=== PATIENT | female | born 1980 | race Caucasian/White ===

== ENCOUNTER 2019-06-26 15:12 | Emergency (ER) | payer OTHER, MEDICAID, SELFPAY ==
--- NOTE | 2019-06-26 15:21 | PC.NURSE ---
Patient has incision, performed on Wednesday with some redness to left side of incision and bruising to left abdomen. She reports temp of 100.2 at home and some concern for possible incision infection. Has been taking tylenol at home.
[2019-06-26 15:23] VITALS: BP 121/61; PULSE 89; RESP 18; O2SAT 100
--- NOTE | 2019-06-26 16:08 | ED_ITS ---
HPI - Skin/Abscess/Foreign Bdy General Chief complaint: Skin/Abscess/Foreign Body Stated complaint: INFECTION FROM C SECTION Time Seen by Provider: 06/26/19 15:34 Source: patient Mode of arrival: Ambulatory Limitations: no limitations History of Present Illness HPI narrative: 38-year-old female. One week status post scheduled repeat C- section. Delivered a baby girl. Patient is breast feeding. States she is bon ding well with the child. No depression. Vaginal bleeding has decreased. No urinary symptoms. Stated that she did have a fever yesterday but took Tylenol. Is here for evaluation of potential infection of her incision. She was told by both nursing and the OB provider the time of for discharge to be conscientious of a potential infection especially on the left side of the incision. She reports that she is having some lower abdominal pain and uterine pain and incisional pain. There has been no drainage from the area. She does have bruising around the area but no other skin changes. No foul-smelling vaginal discharge. Review of Systems Constitutional Constitutional: Denies fatigue, Reports fever(s), Denies lethargy and Denies malaise Genitourinary Genitourinary: Denies dysuria and Denies vaginal odor Musculoskeletal Musculoskeletal: Denies myalgias and Denies arthralgias Integumentary/Breasts Comments: Bruising around the incision Neurologic Neurologic: Denies behavioral changes Psychiatric Psychiatric: Denies behavioral changes Endocrine Endocrine: Denies fatigue Hematologic/Lymphatic Hematologic/Lymphatic: Denies easy bleeding and Denies easy bruising Patient History Medical History Healthy adult (Acute) Social History Smoking Status: Never smoker Smoking Status: Never smoker Substance Use Type: does not use Exam Initial Vital Signs Initial Vital Signs: Vital Signs Pulse Rate 89 06/26/19 15:23 Respiratory Rate 18 06/26/19 15:23 Blood Pressure 121/61 06/26/19 15:23 Pulse Oximetry 100 06/26/19 15:23 Const General: cooperative, comfortable and well developed Limitations: mental status not altered HENMT Head: normal to inspection and normocephalic Resp Effort & Inspection: normal respiratory effort Auscultation: clear to auscultation bilaterally Cardio Rate: regular rate Rhythm: regular rhythm GI Inspection: non-distended Palpation: soft, No firm and tender (Lower abdomen) Skin Other: Surgical incision lower abdomen consistent with stated history. Does have bruising along the left side along the iliac crest. Also has bruising down the left adnexa. No drainage. No crepitus. Extrem General: capillary refill normal Psych Appearance: grossly normal and well kempt Course Vital Signs Vital signs: Vital Signs - 8 hr 06/26/19 15:23 06/26/19 16:19 Pulse Rate 89 77 Respiratory Rate 18 16 Blood Pressure 121/61 118/63 Pulse Oximetry 100 99 MDM - Skin/Abscess/Foreign Bdy MDM Narrative Medical decision making narrative: Afebrile here in the emergency department. Already has Tylenol ibuprofen and oxycodone prescribed to her by her primary doctor for the lower abdominal pain. Considered diagnoses such as urinary tract infection however patient has no urinary symptoms. Also considered endometritis however patient states that the lower abdominal pain that she is having now has been consistent with her prior C-sections. She is also not having any foul- smelling vaginal discharge. She states that the vaginal bleeding is greatly improved from the time of her surgery. She does have tenderness along the left side of her incision however the incision looks well. Everything that I see today is consistent with being 1 week out from her stated procedure. Does have bruising around the area. There is a small area over top of the bruise that seems to be the most tender to the patient. I suspect this is a hematoma. Had a long discussion with the patient regarding symptoms. I did offer to draw blo od however patient did not want any IVs. Informed her that we could wait to see what happens over the next 24-48 hours. Informed her that if her fevers continue or her pain worsens or she started having vaginal discharge or breast pain which could be concerning for mastitis that she should come back to the emergency department. We did discuss that the medications that she is taking are being passed to her child. We did discuss that she should limit the oxycodone as much as possible. Patient expressed understanding and agreement with this plan. Discharge Plan Departure Patient Disposition: Home Clinical Impression: Post-operative pain Discharge Date/Time: 06/26/19 16:20 Activity Restrictions/Additional Instructions: Continue with all of the postoperative instructions given to you by your OB provider. Recommend that you continue all the medications as directed. Contact your OB provider for follow-up. Return to the emergency department for any fevers, worsening pain, foul-smelling vaginal discharge, urinary symptoms or any other new or worsening symptoms
[2019-06-26 16:19] VITALS: BP 118/63; PULSE 77; RESP 16; O2SAT 99
== END 2019-06-26 16:20 | disposition home or self-care (01) ==
PROVIDERS: Emergency Provider Emergency Medicine
DX: G89.18 Other acute postprocedural pain (principal); O90.89 Other complications of the puerperium, not elsewhere classified
CPT/HCPCS: 99281

== ENCOUNTER 2019-11-27 16:51 | Emergency (ER) | payer OTHER, MEDICAID, SELFPAY ==
[2019-11-27 16:55] VITALS: BP 129/73; PULSE 83; RESP 16; TEMP 36.8; O2SAT 98; BMI 21.1
--- NOTE | 2019-11-27 16:56 | ED_ITS ---
HPI - Extremity Injury (Lower) General Chief Complaint: Extremity Injury, Lower Stated Complaint: R Lower leg injury Time Seen by Provider: 11/27/19 16:56 History of Present Illness HPI Narrative: 39-year-old woman with no other significant medical history was in her own kitchen slipped on some water and caught her banda on a sharp piece of hardware sticking out of the edge of the ore feeder. She suffered a 3 cm laceration on the anterior portion of her banad. Describes quite a bit of bleeding and significant pain with spasm. Bleeding is controlled at this point she still having some emotional difficulties dealing with the pain. She describes no fever, cough, chills, dyspnea, chest pain, additional trauma with the fall. She notes that it has been a very trying year with that difficult C- section and she is tired of ?hurting and being poked?. Related Data Previous Rx's Medication Instructions Recorded cephalexin 500 mg PO TID #15 cap 11/27/19 oxycodone-acetaminophen 1 tab PO Q8H PRN #10 tab 11/27/19 Allergies Allergy/AdvReac Type Severity Reaction Status Date / Time No Known Drug Allergies Allergy Verified 11/27/19 16:55 Review of Systems Review of Systems Narrative: Remainder of review of systems including constitutional, ENT, cardiovascular, respiratory, GI, , musculoskeletal, skin, neurologic and psychiatric systems reviewed and are unremarkable except as noted in HPI. Patient History Medical History Healthy adult (Acute) Surgical History History of section (Inactive) Social History Smoking Status: Never smoker Smoking Status: Never smoker Substance Use Type: does not use Exam Narrative Exam Narrative: General: Alert appropriate in no acute distress Respiratory: Able to speak in full sentences, no obvious respiratory distress Skin: No obvious rashes, warm and dry Neurologic: Grossly intact no obvious asymmetries or abnormalities Psych, appropriate insight and affect, cooperative Extremity: 3 cm laceration to the mid anterior right banda. The laceration is somewhat angulated does not appear to get all the way to bone but that is certainly a possibility. Neurovascularly intact distally. Initial Vital Signs Initial Vital Signs: Vital Signs Temperature 98.3 F 11/27/19 16:55 Pulse Rate 83 11/27/19 16:55 Respiratory Rate 16 11/27/19 16:55 Blood Pressure 129/73 11/27/19 16:55 Pulse Oximetry 98 11/27/19 16:55 Procedures Laceration Repair Right anterior banda: Site: lower extremity Side (If applicable): right Size (cm): 3 Description: linear Depth: simple, single layer and involves muscle layer Local Anesthetic: lidocaine 1% and with bicarb Amount of anesthesia used (mL): 10 Pre-repair: wound explored, irrigated extensively and deep structures intact Skin layer closed with: nylon Size (cm): 3-0 Number of sutures: 5 Technique: running and horizontal mattress Course Orders Ordered: Discontinued Medications Bacitracin (Bacitracin) 1 applic TOP NOW ONE Stop: 11/27/19 17:03 Last Admin: 11/27/19 17:12 Dose: 1 applic Documented by: VIDA Ibuprofen (Advil) 400 mg PO NOW ONE Stop: 11/27/19 17:03 Last Admin: 11/27/19 17:11 Dose: 400 mg Documented by: VIDA Lidocaine/Sodium Bicarbonate (Buffered Lidocaine 10 Ml Syr) 10 ml INJ NOW ONE Stop: 11/27/19 17:03 Last Admin: 11/27/19 17:11 Dose: 10 ml Documented by: VIDA Ondansetron HCl (Zofran Odt) 4 mg SL NOW ONE Stop: 11/27/19 17:36 Last Admin: 11/27/19 17:41 Dose: 4 mg Documented by: VIDA Oxycodone/Acetaminophen (Percocet 5/325) 1 tab PO NOW ONE Stop: 11/27/19 17:03 Last Admin: 11/27/19 17:12 Dose: 1 tab Documented by: VIDA Vital Signs Vital signs: Vital Signs - 8 hr 11/27/19 16:55 Temperature 98.3 F Pulse Rate 83 Respiratory Rate 16 Blood Pressure 129/73 Pulse Oximetry 98 MDM - Extremity Injury (Lower) MDM Narrative Medical decision making narrative: Deep laceration to the anterior banda with the possibility of the exposed piece actually getting deep enough to touch the bone will go ahead and place her on antibiotics for 5 days. Sutures will need to come out in 14 days due to the depth of the wound Safe for home discharge Discharge Plan Departure Patient Disposition: Home Clinical Impression: Laceration of lower extremity Qualifiers: Encounter type: initial encounter Laterality: right Qualified Code(s): S81.811A - Laceration without foreign body, right lower leg, initial encounter Instructions: DI for Laceration Repair Activity Restrictions/Additional Instructions: I am sorry that you need to come in today The laceration on your leg is fairly deep and there is a potential for infection. Please complete 5 days of Keflex to prevent infection. Keep the area covered with some antibiotic ointment. Using 400 mg of ibuprofen (2 [id number] pills) and 1 Tylenol every 6 hours can be very helpful in controlling pain. For severe pain to ibuprofen and 1 Percocet can be helpful. Ice and elevation will also be helpful. If you feel that the leg is getting more swollen you may find that a compression dressing or compression sock also helps control the discomfort Sutures need to come out on or about December 09 or (14ish days) I hope you heal well. Prescriptions: New cephalexin 500 mg capsule 500 mg PO TID Qty: 15 RF: 0 oxycodone-acetaminophen 5-325 mg tablet 1 tab PO Q8H PRN (Reason: pain) Qty: 10 RF: 0
[2019-11-27] MEDS: LIDO 1%/SOD BICARB 8.4% (10ML) 10 ML SYRINGE INJ (17:11)
[2019-11-27] MEDS: IBUPROFEN 400 MG TABLET PO (17:11)
[2019-11-27] MEDS: OXYCODONE/ACETAMINOPHEN 5/325 TABLET 1 TAB PO (17:12)
[2019-11-27] MEDS: BACITRACIN OINT 0.9 GM PCKT 1 APPLIC TOP (17:12)
[2019-11-27] MEDS: ONDANSETRON 4 MG ODT SL (17:41)
[2019-11-27 19:01] VITALS: BP 128/80; PULSE 82; RESP 14; TEMP 36.7; O2SAT 100
== END 2019-11-27 19:01 | disposition home or self-care (01) ==
PROVIDERS: Emergency Provider Emergency Medicine
DX: S81.811A Laceration without foreign body, right lower leg, initial encounter (principal); W01.0XXA Fall on same level from slipping, tripping and stumbling without subsequent striking against object, initial encounter
CPT/HCPCS: 12002; 99283

== ENCOUNTER 2022-02-27 13:21 | Emergency (ER) | payer OTHER, MEDICAID, SELFPAY ==
[2022-02-27 13:43] VITALS: BP 121/75; PULSE 92; RESP 20; TEMP 37.1; O2SAT 98; BMI 19.6
--- NOTE | 2022-02-27 13:51 | DI.RAD.S_ITS ---
PROCEDURE: XR CHEST 2V INDICATIONS: cough, rib pain TECHNIQUE: 2 views of the chest were acquired. COMPARISON: None. FINDINGS: Surgical changes and devices: None. Lungs and pleura: Bilateral perihilar interstitial thickening. Small consolidations in the medial right lower lobe and lingular region. No pleural effusion. No pneumothorax. Mediastinum: Mediastinal contours are normal. Heart size is normal. No central vascular congestion. Bones and chest wall: No suspicious bony abnormalities. Soft tissues appear unremarkable. IMPRESSION: 1. Perihilar interstitial thickening most suggestive of viral pneumonitis. 2. Small consolidations suggesting developing focal pneumonia. No pleural effusion. Dictated by: Ana Paula Sigala M.D. on 02/27/2022 at 15:05 Approved by: Ana Paula Sigala M.D. on 02/27/2022 at 15:06
[2022-02-27 14:38] LABS: Influenza A - CEPHEID Flu A NEGATIVE (NEGATIVE); Influenza B - CEPHEID Flu B NEGATIVE (NEGATIVE); Respiratory Syncytial Virus Negative (Negative)
[2022-02-27 14:43] LABS: COVID-19 CEPHEID 4-PLEX PCR Negative (Negative)
--- NOTE | 2022-02-27 17:43 | ED_ITS ---
HPI - URI/Sore Throat <Yaneth Li, [facility] - Last Filed: 02/27/22 18:24> General Chief Complaint: Upper Respiratory Symptoms Stated Complaint: ill,fever, t-19,Lside pain t-4, SOB Time Seen by Provider: 02/27/22 17:28 Source: patient Mode of arrival: Ambulatory History of Present Illness HPI Narrative: This is a 41-year-old female who presents to the emergency department complaining of 19 days of upper respiratory cough, congestion, fevers daily, states is a she was nauseated with vomiting for the 1st 3 days of her illness but has not had these problems since. She states that she is had a fever every day of her upper respiratory illness, states that her child had flu symptoms and was seen at the urgent Care and so she but the focus was more on the child and she did not find out if she had anything contagious as they only tested her for flu. Patient states that she is out of her nebs for her albuterol machine, states that she has a history of asthma and has used it all up. She denies dysuria, urinary frequency or urgency, flank pain, or possibility. She states she has her tubes tied. Patient states that her cough is wet, she is had a runny nose and increased congestion. Related Data Previous Rx's Medication Instructions Recorded cephalexin 500 mg capsule 500 mg PO TID #15 caps 11/27/19 oxycodone-acetaminophen 5 mg-325 1 tab PO Q8H PRN pain #10 tabs 11/27/19 mg tablet albuterol sulfate 90 mcg/actuation 1 puff inhalation QID PRN 02/27/22 aerosol inhaler shortness of breath or wheezing #8.5 grams amoxicillin 500 mg tablet 1,000 mg PO TID pneumonia 5 days 02/27/22 #30 tabs azithromycin 250 mg tablet 250 mg PO DAILY 4 days #4 tabs 02/27/22 benzonatate 100 mg capsule 100 mg PO Q6H PRN cough #14 caps 02/27/22 cetirizine 10 mg tablet (Zyrtec) 10 mg PO DAILY PRN congestion #20 02/27/22 tabs guaifenesin 600 mg tablet, 600 mg PO BID PRN cough #20 tabs 02/27/22 extended release 12 hr lidocaine 5 % topical patch 1 patch topical DAILY #15 ea 02/27/22 (Lidoderm) Allergies Allergy/AdvReac Type Severity Reaction Status Date / Time No Known Drug Allergies Allergy Verified 02/27/22 13:43 Review of Systems <CARIDAD Sanchez - Last Filed: 02/27/22 18:24> Review of Systems Narrative: Review of systems is negative for acute abnormalities unless otherwise noted in HPI Patient History <CARIDAD Sanchez - Last Filed: 02/27/22 18:24> Medical History Healthy adult Surgical History History of section Social History Smoking Status: Never smoker Smoking Status: Never smoker Substance Use Type: does not use Exam <CARIDAD Sanchez - Last Filed: 02/27/22 18:24> Narrative Exam Narrative: Reviewed vitals signs and nursing notes. General: cooperative, comfortable, in no acute distress, well groomed HEENT: symmetrical facial expressions, moist mucous membranes Cardiovascular: regular rate and rhythm, no peripheral edema, warm extremities Respiratory: normal effort, able to speak in complete sentences, without wheezing, stridor, crackles auscultated to right middle/lower lobe and crackles to left lower lobe with diminished breath sounds, No retractions, hypoxia, increased respiratory effort or tachypnea. Wet cough, productive GI: abdomen soft, nontender to palpation, nondistended, without masses, rebound tenderness or exquisite tenderness with exam. MSK: moves all extremities, neurovascularly intact, no weakness, normal tone Skin: brisk capillary refill, without pallor or erythema Neuro: normal speech and cognition, A&O x3, ambulatory, clear speech Psych: mental status is grossly normal, congruent mood, normal affect, pleasant and cooperative Initial Vital Signs Initial Vital Signs: Vital Signs Temperature 98.7 F 02/27/22 13:43 Pulse Rate 92 H 02/27/22 13:43 Respiratory Rate 20 02/27/22 13:43 Blood Pressure 121/75 02/27/22 13:43 Pulse Oximetry 98 02/27/22 13:43 Oxygen Delivery Method 02/27/22 13:43 <Anthony Skinner DO - Last Filed: 02/27/22 18:26> Initial Vital Signs Initial Vital Signs: Vital Signs Temperature 98.7 F 02/27/22 13:43 Pulse Rate 92 H 02/27/22 13:43 Respiratory Rate 20 02/27/22 13:43 Blood Pressure 121/75 02/27/22 13:43 Pulse Oximetry 98 02/27/22 13:43 Oxygen Delivery Method 02/27/22 13:43 Course <CARIDAD Sanchez - Last Filed: 02/27/22 18:24> Orders Ordered: ED Orders 02/27/22 13:51 XR chest 2V Stat 02/27/22 13:52 Covid-19 + FLU A/B + RSV - PCR Stat 02/27/22 18:04 Urine Microscopic Stat Discontinued Medications Albuterol/Ipratropium (Albuterol/Ipratropium 3 Ml Ampul) 3 ml INH NOW ONE Stop: 02/27/22 17:40 Last Admin: 02/27/22 18:06 Dose: 3 ml Documented By: SAT Amoxicillin (Amoxicillin 250 Mg Capsule) 1,000 mg PO NOW ONE Stop: 02/27/22 17:40 Last Admin: 02/27/22 18:16 Dose: Not Given Documented By: SB Amoxicillin (Amoxicillin 250 Mg Capsule) 1,000 mg PO NOW ONE Stop: 02/27/22 18:17 Azithromycin (Azithromycin 250 Mg Tablet) 500 mg PO NOW ONE Stop: 02/27/22 17:40 Last Admin: 02/27/22 18:13 Dose: 500 mg Documented By: SB Dexamethasone (Dexamethasone 10 Mg/Ml Vial) 10 mg PO NOW ONE Stop: 02/27/22 17:40 Last Admin: 02/27/22 18:13 Dose: 10 mg Documented By: SB Guaifenesin/Codeine Phosphate (Codeine/Guaifenesin Liquid 5ml Udc) 10 ml PO NOW ONE Stop: 02/27/22 17:43 Ketorolac Tromethamine (Ketorolac 30 Mg/Ml Vial) 15 mg IM NOW ONE Stop: 02/27/22 17:40 Last Admin: 02/27/22 18:22 Dose: Not Given Documented By: SB Vital Signs Vital signs: Vital Signs - 8 hr 02/27/22 13:43 02/27/22 18:13 Temperature 98.7 F Pulse Rate 92 H 88 Respiratory Rate 20 16 Blood Pressure 121/75 Pulse Oximetry 98 100 Oxygen Delivery Method Room Air Room Air <Anthony Skinner DO - Last Filed: 02/27/22 18:26> Orders Ordered: ED Orders 02/27/22 13:51 XR chest 2V Stat 02/27/22 13:52 Covid-19 + FLU A/B + RSV - PCR Stat 02/27/22 18:04 Urine Microscopic Stat Discontinued Medications Albuterol/Ipratropium (Albuterol/Ipratropium 3 Ml Ampul) 3 ml INH NOW ONE Stop: 02/27/22 17:40 Last Admin: 02/27/22 18:06 Dose: 3 ml Documented By: SAT Amoxicillin (Amoxicillin 250 Mg Capsule) 1,000 mg PO NOW ONE Stop: 02/27/22 17:40 Last Admin: 02/27/22 18:16 Dose: Not Given Documented By: SB Amoxicillin (Amoxicillin 250 Mg Capsule) 1,000 mg PO NOW ONE Stop: 02/27/22 18:17 Azithromycin (Azithromycin 250 Mg Tablet) 500 mg PO NOW ONE Stop: 02/27/22 17:40 Last Admin: 02/27/22 18:13 Dose: 500 mg Documented By: SB Dexamethasone (Dexamethasone 10 Mg/Ml Vial) 10 mg PO NOW ONE Stop: 02/27/22 17:40 Last Admin: 02/27/22 18:13 Dose: 10 mg Documented By: SB Guaifenesin/Codeine Phosphate (Codeine/Guaifenesin Liquid 5ml Udc) 10 ml PO NOW ONE Stop: 02/27/22 17:43 Ketorolac Tromethamine (Ketorolac 30 Mg/Ml Vial) 15 mg IM NOW ONE Stop: 02/27/22 17:40 Last Admin: 02/27/22 18:22 Dose: Not Given Documented By: SB Vital Signs Vital signs: Vital Signs - 8 hr 02/27/22 13:43 02/27/22 18:13 Temperature 98.7 F Pulse Rate 92 H 88 Respiratory Rate 20 16 Blood Pressure 121/75 Pulse Oximetry 98 100 Oxygen Delivery Method Room Air Room Air MDM - URI/Sore Throat <CARIDAD Sanchez - Last Filed: 02/27/22 18:24> Lab Data Labs: Lab Results 02/27/22 Range/Units 13:52 SARS-CoV-2 (PCR) Negative (Negative) Influenza A (RT-PCR) Flu a negative (NEGATIVE) Influenza B (RT-PCR) Flu b negative (NEGATIVE) RSV (PCR) Negative (Negative) Imaging Data Chest x-ray: Radiologist's Impression: PROCEDURE:? XR CHEST 2V ? INDICATIONS:? cough, rib pain ? TECHNIQUE:? 2 views of the chest were acquired.? ? COMPARISON:? None. ? FINDINGS:? ? Surgical changes and devices:? None.? ? Lungs and pleura:? Bilateral perihilar interstitial thickening.? Small consolidations in the medial right lower lobe and lingular region.? No pleural effusion.? No pneumothorax. ? Mediastinum:? Mediastinal contours are normal.? Heart size is normal.? No central vascular congestion. ? Bones and chest wall:? No suspicious bony abnormalities.? Soft tissues appear unremarkable.? ? IMPRESSION:? ? 1. Perihilar interstitial thickening most suggestive of viral pneumonitis. ? 2. Small consolidations suggesting developing focal pneumonia.? No pleural effusion.? ? ? Dictated by: Ana Paula Sigala M.D. on 02/27/2022 at 15:05 ? ? Approved by: Ana Paula Sigala M.D. on 02/27/2022 at 15:06 ? [facility] Narrative Medical decision making narrative: This is a 41-year-old female presents emergency department with cough, congestion, fevers and states she is had these symptoms for the last 19 days. On exam she had diminished breath sounds to the right middle and left lower base with crackles, states that she has a history of asthma and used up the rest of her albuterol at home. Chest x-ray shows bilateral perihilar interstitial thickening with small consolidations in the right knee lower lobe and lingular region, no pneumothorax or pleural effusion. Small consolidation suggesting developing focal pneumonia without effusion. Patient is without hypoxia, tachypnea, respiratory distress, or shortness of breath. She was given a DuoNeb which he states helped her feel better, dexamethasone for inflammatory changes and pneumonitis versus pneumonia. Patient's urine dip is negative for WBCs, RBCs or bacteria, microscopy shows Patient does not have any urogenital symptoms. COVID, influenza a, B and RSV PCRs are all negative. Patient was treated for community-acquired pneumonia, her albuterol was refilled at her pharmacy, she is nontoxic appearing, without distress and is tolerating p.o.. Encouraged to stay hydrated, use Tylenol Motrin as needed for pain and fever, she was given guaifenesin, Zyrtec, benzonatate and albuterol prescriptions, her pneumonia was treated today with azithromycin and high-dose amoxicillin t.i.d. times 5 days. Differential includes viral syndrome, pneumonia, pneumonitis. Patient is appropriate and amenable to discharge home. Vital signs are stable on repeat examination is unremarkable. Patient has been informed of results. Patient has been given strict return to ER precautions for any new or worsening symptoms. Patient understands to follow up closely with outpatient providers as instructed. Patient understands plan and agrees to discharge home. All questions and concerns answered at this time. <Anthony Skinner DO - Last Filed: 02/27/22 18:26> Lab Data Labs: Lab Results 02/27/22 Range/Units 13:52 SARS-CoV-2 (PCR) Negative (Negative) Influenza A (RT-PCR) Flu a negative (NEGATIVE) Influenza B (RT-PCR) Flu b negative (NEGATIVE) RSV (PCR) Negative (Negative) Discharge Plan Departure Patient Disposition: Home Clinical Impression: Acute viral syndrome Pneumonia Qualifiers: Pneumonia type: due to unspecified organism Laterality: bilateral Lung location: unspecified part of lung Qualified Code(s): J18.9 - Pneumonia, unspecified organism Instructions: Pneumonia-Adult, DI for Viral Upper Respiratory Infection -- Adult Activity Restrictions/Additional Instructions: *You have been diagnosed with upper respiratory symptoms that have lasted for over 2 weeks now with signs of pneumonia on your x-ray. This this likely started with a viral illness, you have some patches developing pneumonia on your chest x-ray. This we will treat with antibiotics, please take Mucinex for productive cough, Zyrtec for increased congestion, ibuprofen and Tylenol as needed for muscle aches and for rib pain, and finish your antibiotics as prescribed. Please return to the emergency department for worsening of her symptoms, you should start to get better within the next 24-48 hours. I hope you feel better soon. I have given you lidocaine patches to use for your rib pain if this is helpful. *What to do: *Please continue to take your regular medications as directed. [x ] New medication prescriptions sent to your pharmacy: [[facility] ] [ ] New medication written as a paper prescription [ ] No new medications given *Please follow up with your primary care provider in 2-3 days, call for an appointment. Let them know you were seen in the Emergency Department and that we asked that you be seen for follow-up. We will electronically transmit a record of today's note if your PCP is in our system *If you do not have a primary care provider please contact [phone] to establish care with one of the [facility] primary care providers. *Return to Emergency Department if you should have any new, worsening, or concerning symptoms, such as [fever greater than 101F, chills, worsening pain, persistent vomiting or other bothersome symptoms]. Prescriptions: New azithromycin 250 mg tablet 250 mg PO DAILY 4 Days Qty: 4 0RF Rx Instructions: start on day 2 of therapy amoxicillin 500 mg tablet 1,000 mg PO TID 5 Days Qty: 30 0RF cetirizine [Zyrtec] 10 mg tablet 10 mg PO DAILY PRN (Reason: congestion) Qty: 20 0RF benzonatate 100 mg capsule 100 mg PO Q6H PRN (Reason: cough) Qty: 14 0RF guaifenesin 600 mg tablet extended release 12hr 600 mg PO BID PRN (Reason: cough) Qty: 20 0RF albuterol sulfate 90 mcg/actuation HFA aerosol inhaler 1 puff inhalation QID PRN (Reason: shortness of breath or wheezing) Qty: 8.5 0RF lidocaine [Lidoderm] 5 % adhesive patch,medicated 1 patch topical DAILY Qty: 15 0RF Rx Instructions: leave on most painful area for up to 12 hrs No Action cephalexin 500 mg capsule 500 mg PO TID Qty: 15 0RF oxycodone-acetaminophen 5-325 mg tablet 1 tab PO Q8H PRN (Reason: pain) Qty: 10 0RF Referrals: [facility] [Provider Group] <Anthony Skinner, DO - Last Filed: 02/27/22 18:26> [facility] Dr Skinner Co-Sign Statement: I was available for consultation during this patient's emergency department visit. This chart is signed by myself for administrative purposes only. I did not have direct contact with this patient during this visit. They were seen independently by the APC.
[2022-02-27] MEDS: ALBUTEROL/IPRATROPIUM 3 ML AMPUL INH (18:06)
[2022-02-27 18:13] VITALS: PULSE 88; RESP 16; O2SAT 100
[2022-02-27] MEDS: DEXAMETHASONE 10 MG/ML VIAL PO (18:13)
[2022-02-27] MEDS: AZITHROMYCIN 250 MG TABLET 500 MG PO (18:13)
[2022-02-27] MEDS: CODEINE/GUAIFENESIN LIQUID 5ML UDC 10 ML PO (18:38)
[2022-02-27] MEDS: AMOXICILLIN 250 MG CAPSULE 1000 MG PO (18:38)
[2022-02-27 18:42] LABS: Amorphous Sediment Urine 1+; Bacteria Urine None Seen; Culture Indicated Urine Cult Not Indicated; Mucus Urine 1+ (Negative); RBC Urine None Seen (0-5/HPF); Squamous Epithelial Cell Urine 1-5 /HPF (0-5/HPF); WBC Urine 1-5/HPF (0-5/HPF)
[2022-02-27 18:50] VITALS: BP 108/63; PULSE 104; RESP 16; TEMP 36.9; O2SAT 99
== END 2022-02-27 18:50 | disposition home or self-care (01) ==
PROVIDERS: Emergency Medicine; Emergency Provider Nurse Practitioner Critical Care Medicine
DX: J18.9 Pneumonia, unspecified organism (principal); B34.9 Viral infection, unspecified; R07.81 Pleurodynia; Z20.822 Contact with and (suspected) exposure to COVID-19
CPT/HCPCS: 0241U; 71046; 81003; 81015; 81025; 94150; 94640; 99284; J1100; J1885